=== PATIENT | female | born 1990 | race Two or more races ===

== ENCOUNTER 2024-07-14 22:24 | Inpatient (IN) | payer OTHER ==
[~2024-07-14] VITALS: Ht 165.1 cm; Wt 122.7 kg
[2024-07-14] MEDS ORDERED: MAGN-169 PO (23:57)
[2024-07-14] MEDS ORDERED: ONDA-104 PO (23:58)
[2024-07-14] MEDS ORDERED: ACET-2247 PO (23:59)
[2024-07-15 00:02] LABS: BASOPHILS % (AUTO) 0.7 % (0.0-2.0); EOSINOPHILS % (AUTO) 1.5 % (1.0-6.0); HEMATOCRIT 46.9 % (36-46); HEMOGLOBIN 15.3 g/dL (12.0-16.0); LYMPHOCYTES # (AUTO) 2.3 K/uL (1.0-4.8); LYMPHOCYTES % (AUTO) 24.1 % (22.0-44.0); MEAN CORPUSCULAR HEMOGLOBIN 27.5 pg (26.0-34.0); MEAN CORPUSCULAR HGB CONC 32.6 G/dL (31.0-37.0); MEAN CORPUSCULAR VOLUME 84 fL (80-100); MONOCYTES # (AUTO) 0.6 K/uL (0.1-1.0); MONOCYTES % (AUTO) 6.7 % (2.0-9.0); NEUTROPHILS # (AUTO) 6.4 K/uL (1.8-7.7); PLATELET COUNT (AUTO) 288 K/uL (150-450); RED BLOOD CELL COUNT(AUTO) 5.56 MIL/uL (4.00-5.20); RED CELL DISTRIBUTION WIDTH 13.9 % (11.5-14.5); WHITE BLOOD COUNT (AUTO) 9.6 K/uL (4.5-11.0)
[2024-07-15] MEDS ORDERED: METF-910 PO (00:02)
[2024-07-15] MEDS ORDERED: SEMA0.258 SQ (00:09)
[2024-07-15 00:11] LABS: ANION GAP 10 mmol/L (8-16); CALCIUM, TOTAL 8.7 mg/dL (8.8-10.5); CARBON DIOXIDE 27 mmol/L (22-29); CHLORIDE 99 mmol/L (98-107); CREATININE 0.99 mg/dL (0.60-1.30); GLOMERULAR FILTR. RATE CALC > 60 mL/min (>60); GLUCOSE,RANDOM 99 mg/dL (70-110); POTASSIUM 3.8 mmol/L (3.5-5.1); SODIUM SERUM 136 mmol/L (136-145); UREA NITROGEN, BLOOD 16 mg/dL (7-18)
[2024-07-15 00:29] LABS: ALCOHOL, BLOOD (SERUM) < 3 mg/dL (0-10)
[2024-07-15] MEDS: SODIUM CHLORIDE 0.45% 1,000 ML IV SCH (01:45)
[2024-07-15] MEDS ORDERED: PROMETHAZINE HCL 25 MG TABLET PO PRN (01:45)
[2024-07-15] MEDS ORDERED: BISACODYL 10 MG RECTAL RECTAL SUPPOSITORY PR PRN (01:45)
[2024-07-15] MEDS ORDERED: LOPERAMIDE HCL 2 MG/15 ML SUSPENSION UDCUP PO PRN (01:45)
[2024-07-15] MEDS ORDERED: INSULIN LISPRO 100 UNITS/ML SQ PRN (01:45)
[2024-07-15] MEDS ORDERED: IPRATROPIUM BROMIDE 0.5 MG/2.5 ML NEB SOLUTION NEB PRN (01:45)
[2024-07-15] MEDS ORDERED: LORazepam 1 MG TABLET PO PRN (01:45)
[2024-07-15] MEDS ORDERED: DEXTROSE 50%-WATER 25 GM/50 ML SYRINGE IVP PRN (01:45)
[2024-07-15] MEDS ORDERED: MAGNESIUM HYDROXIDE SUSPENSION 30 ML UDCUP PO PRN (01:45)
[2024-07-15] MEDS ORDERED: ALBUTEROL SULFATE 2.5 MG/0.5 ML NEB SOLUTION NEB PRN (01:45)
[2024-07-15] MEDS ORDERED: MAG HYDROX/ALUMINUM HYD/SIMETH ES 30 ML SUSPENSION UDCUP PO PRN (01:45)
[2024-07-15] MEDS ORDERED: ACETAMINOPHEN 325 MG TABLET PO PRN (01:45)
[2024-07-15] MEDS ORDERED: CloNIDine HCL 0.1 MG TABLET PO PRN (01:45)
[2024-07-15] MEDS ORDERED: ONDANSETRON HCL 4 MG/2 ML VIAL IVP PRN (01:45)
[2024-07-15] MEDS ORDERED: BACLOFEN 10 MG TABLET PO PRN (01:45)
[2024-07-15] MEDS: HEPARIN SODIUM,PORCINE 5,000 UNITS/ML VIAL SQ SCH (08:07)
[2024-07-15 09:10] VITALS: BP 123/70; PULSE 83; RESP 20; TEMP 98.9; O2SAT 94
[2024-07-15 14:03] LABS: PH,URINE DRUG SCREEN 5.5 (5.0-8.0)
[2024-07-15 14:11] LABS: ALCOHOL, URINE DRUG SCREEN NEGATIVE (NEGATIVE); AMPHET/METH SCREEN,URINE POSITIVE (NEGATIVE); BARBITURATE SCREEN, URINE NEGATIVE (NEGATIVE); BENZODIAZEPINES SCREEN,URINE NEGATIVE (NEGATIVE); CANNABINOID SCREEN,URINE NEGATIVE (NEGATIVE); COCAINE SCREEN,URINE NEGATIVE (NEGATIVE); METHADONE SCREEN, URINE NEGATIVE (NEGATIVE); OPIATE SCREEN,URINE NEGATIVE (NEGATIVE); PHENCYCLIDINE SCREEN,URINE NEGATIVE (NEGATIVE)
[2024-07-15 20:06] VITALS: BP 98/54; PULSE 82; RESP 18; TEMP 98.3; O2SAT 94
[2024-07-15 21:06] LABS: GLUCOMETER DEV NAME(LOC) 5S.2D; GLUCOSE,POINT OF CARE 148 MG/DL (70-110)
[2024-07-15 21:06] LABS: GLUCOMETER DEV NAME(LOC) 5S.2D; GLUCOSE,POINT OF CARE 111 MG/DL (70-110)
[2024-07-15] MEDS: TraZODone HCL 50 MG TABLET PO PRN (21:15)
[2024-07-15] MEDS: DICYCLOMINE HCL 10 MG CAPSULE PO PRN (22:19)
[2024-07-16 04:22] VITALS: BP 124/82; PULSE 88; RESP 19; TEMP 97.9; O2SAT 96
[2024-07-16 05:46] LABS: GLUCOMETER DEV NAME(LOC) 6S.2; GLUCOSE,POINT OF CARE 119 MG/DL (70-110)
[2024-07-16 05:46] LABS: GLUCOMETER DEV NAME(LOC) 6S.2; GLUCOSE,POINT OF CARE 112 MG/DL (70-110)
[2024-07-16 08:19] VITALS: BP 119/69; PULSE 86; RESP 18; TEMP 98.5; O2SAT 96
[2024-07-16] MEDS: HydrOXYzine PAMOATE 50 MG CAPSULE PO PRN (10:48)
[2024-07-16 19:56] VITALS: BP 114/73; PULSE 83; RESP 18; TEMP 98.4; O2SAT 99
[2024-07-17] MEDS: IBUPROFEN 600 MG TABLET PO PRN (01:27)
[2024-07-17] MEDS: ACETAMINOPHEN 325 MG TABLET PO PRN (01:53)
[2024-07-17] MEDS: ZOLPIDEM TARTRATE 5 MG TABLET PO PRN (01:53)
[2024-07-17 06:44] VITALS: BP 107/64; PULSE 86; RESP 18; TEMP 98; O2SAT 96
[2024-07-17 06:50] LABS: GLUCOMETER DEV NAME(LOC) 5S.2D; GLUCOSE,POINT OF CARE 109 MG/DL (70-110)
[2024-07-17 07:41] LABS: GLUCOMETER DEV NAME(LOC) 6S.2; GLUCOSE,POINT OF CARE 102 MG/DL (70-110)
[2024-07-17 07:41] LABS: GLUCOMETER DEV NAME(LOC) 6S.2; GLUCOSE,POINT OF CARE 103 MG/DL (70-110)
[2024-07-17 07:41] LABS: GLUCOMETER DEV NAME(LOC) 6S.2; GLUCOSE,POINT OF CARE 108 MG/DL (70-110)
[2024-07-17 17:33] VITALS: BP 118/75; PULSE 85; RESP 18; TEMP 98; O2SAT 96
[2024-07-17 19:41] LABS: GLUCOMETER DEV NAME(LOC) 5S.2D; GLUCOSE,POINT OF CARE 97 MG/DL (70-110)
[2024-07-17 20:08] VITALS: BP 126/72; PULSE 86; RESP 20; TEMP 98.6; O2SAT 96
[2024-07-18 03:10] LABS: GLUCOMETER DEV NAME(LOC) 5S.2D; GLUCOSE,POINT OF CARE 130 MG/DL (70-110)
[2024-07-18 03:25] VITALS: BP 123/79; PULSE 82; RESP 20; TEMP 98.2; O2SAT 96
[2024-07-18 06:35] LABS: GLUCOMETER DEV NAME(LOC) 6S.2; GLUCOSE,POINT OF CARE 112 MG/DL (70-110)
[2024-07-18 08:00] VITALS: BP 106/66; PULSE 82; RESP 18; TEMP 98.4; O2SAT 97
[2024-07-18 15:21] LABS: GLUCOMETER DEV NAME(LOC) 5S.2D; GLUCOSE,POINT OF CARE 107 MG/DL (70-110)
[2024-07-18 18:46] LABS: GLUCOMETER DEV NAME(LOC) 5S.2D; GLUCOSE,POINT OF CARE 94 MG/DL (70-110)
== END 2024-07-18 17:50 | DRG 392 ==
LOC: EMS 22:24 → EDH 07-15 02:02 → 6S 07-15 08:50
PROVIDERS: ADMIT Hospitalist; ATTEND Hospitalist
DX: R10.9 Unspecified abdominal pain (principal); F15.23 Other stimulant dependence with withdrawal; Z68.42 Body mass index [BMI] 45.0-49.9, adult; F17.200 Nicotine dependence, unspecified, uncomplicated; E11.9 Type 2 diabetes mellitus without complications; E66.9 Obesity, unspecified; I10 Essential (primary) hypertension; F19.10 Other psychoactive substance abuse, uncomplicated
CPT/HCPCS: 80048; 80307; 82962; 84703; 85025; 99285; G0480; J1644